=== PATIENT | male | born 2005 | race Two or more races ===

== ENCOUNTER 2024-07-18 21:34 | Emergency (ER) | payer OTHER ==
[~2024-07-18] VITALS: Ht 170.2 cm; Wt 57.2 kg
[2024-07-18] MEDS ORDERED: levETIRAcetam 500 MG/5 ML LIQUID UDC ONE (22:05)
[2024-07-18] MEDS ORDERED: ONDANSETRON 4 MG/2 ML VIAL ONE (22:05)
[2024-07-18] MEDS ORDERED: LORAZEPAM 2 MG/1 ML VIAL ONE (22:06)
[2024-07-18] MEDS ORDERED: levETIRAcetam 500 MG/5 ML VIAL IV ONE (22:08)
[2024-07-18 22:14] LABS: BASOPHILS # (AUTO) 0.1 K/UL (0.0-0.2); BASOPHILS % (AUTO) 0.7 % (0.0-2.0); EOSINOPHILS % (AUTO) 0.1 % (0.0-7.0); HEMATOCRIT 43.8 % (36.7-47.1); HEMOGLOBIN 14.8 g/dL (12.5-16.3); LYMPHOCYTES % (AUTO) 11.3 % (20.5-74.5); MEAN CORPUSCULAR HEMOGLOBIN 30.6 uug (23.8-33.4); MEAN CORPUSCULAR HGB CONC 34 g/dL (32.5-36.3); MEAN CORPUSCULAR VOLUME 90.8 fL (73.0-96.2); MONOCYTES # (AUTO) 0.3 K/uL (0.1-1.30); MONOCYTES % (AUTO) 3.4 % (0-11); NEUTROPHILS # (AUTO) 7.3 K/uL (1.8-8.9); NEUTROPHILS % (AUTO) 84.5 % (31.5-64.5); PLATELET COUNT (AUTO) 259 K/uL (152-348); RED BLOOD CELL COUNT(AUTO) 4.83 MIL/uL (4.06-5.63); RED CELL DISTRIBUTION WIDTH 12.3 % (12.1-16.2); WHITE BLOOD COUNT (AUTO) 8.7 K/uL (3.6-10.2)
[2024-07-18] MEDS: LORAZEPAM 2 MG/1 ML VIAL IV ONE (22:23)
[2024-07-18] MEDS: IV NORMAL SALINE 1000 ML BAG IV ONE (22:23)
[2024-07-18] MEDS: levETIRAcetam IV 500 MG in IV DEXTROSE 5% 100 ML IV ONE (22:23)
[2024-07-18] MEDS: ONDANSETRON 4 MG/2 ML VIAL IV ONE (22:24)
[2024-07-18 22:29] LABS: ALANINE AMINOTRANSFERASE 21 U/L (16-63); ALBUMIN 4.6 g/dL (3.4-5.0); ALKALINE PHOSPHATASE 48 U/L (50-136); ASPARTATE AMINOTRANSFERASE 13 U/L (15-37); BILIRUBIN,DIRECT 0.3 mg/dL (0.0-0.2); BILIRUBIN,TOTAL 1.5 mg/dL (0.2-1.0); CALCIUM 9.5 mg/dL (8.5-10.1); CARBON DIOXIDE 27 mmol/L (21-32); CHLORIDE 103 mmol/L (98-107); GLUCOSE 134 mg/dL (74-106); POTASSIUM 3.9 mmol/L (3.5-5.1); SODIUM SERUM 141 mmol/L (136-145); UREA NITROGEN, BLOOD 13 mg/dL (7-18)
[2024-07-18 22:39] LABS: ACETAMINOPHEN < 10.0 ug/mL (10-30)
[2024-07-18 22:41] LABS: LACTIC ACID 3.5 mmol/L (0.4-2.0)
[2024-07-18 23:02] LABS: ACETONE, SERUM NEGATIVE (NEGATIVE); ETHANOL < 3 MG/DL (0-10)
[2024-07-18] MEDS ORDERED: ALPR2TAB7 PO ×2 (23:20→23:21)
[2024-07-18 23:37] LABS: *AMPHETAMINE, URINE NEGATIVE (NEGATIVE); *BARBITURATE, URINE NEGATIVE (NEGATIVE); *BENZODIAZEPINE, URINE POSITIVE (NEGATIVE); *CANNABINOID, URINE POSITIVE (NEGATIVE); *COCCAINE, URINE NEGATIVE (NEGATIVE); *OPIATE, URINE NEGATIVE (NEGATIVE); *PHENCYCLIDINE SCREEN,URINE NEGATIVE (NEGATIVE); FENTANYL, URINE NEGATIVE (NEGATIVE)
[2024-07-18 23:59] VITALS: BP 159/97; TEMP 98; O2SAT 96
== END 2024-07-19 00:02 | disposition home or self-care (01) ==
LOC: ER 21:34
DX: R56.9 Unspecified convulsions (principal); F13.239 Sedative, hypnotic or anxiolytic dependence with withdrawal, unspecified; R51.9 Headache, unspecified; W18.39XA Other fall on same level, initial encounter; Y93.89 Activity, other specified; Y92.89 Other specified places as the place of occurrence of the external cause; Y99.8 Other external cause status
CPT/HCPCS: 80076; 80048; 82009; 85025; 36415; 71045; 70450; 72125; 93005; 99285; 96365; 96375; 83605; 80299; 80320; 80307; J1953 ×2; J2060; J2405; J7040; A4606; A4663; G0480